=== PATIENT | female | born 1950 | race Caucasian/White ===

== ENCOUNTER → 2017-03-20 08:33 | Outpatient (CLI) | payer OTHER ==
[~2017-03-20 08:33] MED LIST: MOBIC7.5 M1 PO
== END | disposition home or self-care (01) ==
LOC: LAB 08:33
DX: Z80.3 Family history of malignant neoplasm of breast (principal); Z80.0 Family history of malignant neoplasm of digestive organs; C73 Malignant neoplasm of thyroid gland; D51.3 Other dietary vitamin B12 deficiency anemia; D50.8 Other iron deficiency anemias; I10 Essential (primary) hypertension; E03.8 Other specified hypothyroidism; E78.4 Other hyperlipidemia; E55.9 Vitamin D deficiency, unspecified; R97.0 Elevated carcinoembryonic antigen [CEA]; D51.8 Other vitamin B12 deficiency anemias; E78.2 Mixed hyperlipidemia; M79.1 Myalgia

== ENCOUNTER 2017-06-11 07:31 | Outpatient (CLI) | payer OTHER | END 2017-06-11 07:38 | disposition home or self-care (01) | LOC: LAB 07:31 | DX: Z80.3 Family history of malignant neoplasm of breast (principal); Z80.0 Family history of malignant neoplasm of digestive organs; C73 Malignant neoplasm of thyroid gland; D51.3 Other dietary vitamin B12 deficiency anemia; D50.8 Other iron deficiency anemias; I10 Essential (primary) hypertension; E03.8 Other specified hypothyroidism; E55.9 Vitamin D deficiency, unspecified; R97.0 Elevated carcinoembryonic antigen [CEA]; D51.8 Other vitamin B12 deficiency anemias; E78.4 Other hyperlipidemia ==

== ENCOUNTER 2017-10-10 09:45 | Outpatient (CLI) | payer OTHER ==
[~2017-10-10] VITALS: Ht 152.4 cm; Wt 52.2 kg
[~2017-10-10 09:45] MED LIST changes: -FLONASE16 GM NASAL; -ZYRTEC10 MG PO
[2017-10-10] MEDS ORDERED: ZYRTEC10 MG PO ×2 (10:39)
[2017-10-10] MEDS ORDERED: FLONASE16 GM NASAL ×2 (10:39)
== END 2017-10-10 10:00 | disposition home or self-care (01) ==
LOC: OFIC 805 09:45
DX: J31.0 Chronic rhinitis (principal); J34.2 Deviated nasal septum; C73 Malignant neoplasm of thyroid gland; R05 Cough

== ENCOUNTER → 2017-10-10 | Outpatient (CLI) | payer OTHER ==
[~2017-10-10] MED LIST changes: +FLONASE16 GM NASAL; +ZYRTEC10 MG PO
== END | disposition home or self-care (01) ==
LOC: TOM 11:51
DX: J31.0 Chronic rhinitis (principal)

== ENCOUNTER 2017-10-24 09:05 | Outpatient (CLI) | payer OTHER ==
[~2017-10-24] VITALS: Ht 152.4 cm; Wt 52.2 kg
[~2017-10-24 09:05] MED LIST changes: +FLONASE16 GM NASAL; +ZYRTEC10 MG PO
[2017-10-24] MEDS ORDERED: FLONASE16 GM NASAL (13:00)
[2017-10-24] MEDS ORDERED: ZYRTEC10 MG PO (13:00)
[2017-10-24] MEDS ORDERED: SINGULAIR10 MG PO (13:01)
== END 2017-10-24 09:20 | disposition home or self-care (01) ==
LOC: OFIC 805 09:05
DX: J31.0 Chronic rhinitis (principal); J34.2 Deviated nasal septum; C73 Malignant neoplasm of thyroid gland

== ENCOUNTER 2018-04-22 08:37 | Outpatient (CLI) | payer OTHER ==
[~2018-04-22 08:37] MED LIST changes: +SINGULAIR10 MG PO
== END 2018-04-22 08:45 | disposition home or self-care (01) ==
LOC: LAB 08:37
DX: Z80.3 Family history of malignant neoplasm of breast (principal); Z80.0 Family history of malignant neoplasm of digestive organs; C73 Malignant neoplasm of thyroid gland; D51.3 Other dietary vitamin B12 deficiency anemia; D50.8 Other iron deficiency anemias; I10 Essential (primary) hypertension; E03.8 Other specified hypothyroidism; E78.5 Hyperlipidemia, unspecified; E55.9 Vitamin D deficiency, unspecified; R97.0 Elevated carcinoembryonic antigen [CEA]; D51.8 Other vitamin B12 deficiency anemias; K90.89 Other intestinal malabsorption; R97.8 Other abnormal tumor markers

== ENCOUNTER 2018-04-24 08:38 | Outpatient (CLI) | payer OTHER ==
[~2018-04-24] VITALS: Ht 152.4 cm; Wt 52.2 kg
[2018-04-24] MEDS ORDERED: FLONASE16 GM NASAL (11:58)
[2018-04-24] MEDS ORDERED: ZYRTEC10 MG PO (11:58)
[2018-04-24] MEDS ORDERED: SINGULAIR10 MG PO (11:58)
== END 2018-04-24 09:00 | disposition home or self-care (01) ==
LOC: OFIC 805 08:38
DX: R05 Cough (principal); J34.2 Deviated nasal septum; J31.0 Chronic rhinitis

== ENCOUNTER 2018-04-27 07:49 | Outpatient (CLI) | payer OTHER | END 2018-04-27 16:12 | disposition home or self-care (01) | LOC: LAB 07:49 | DX: I11.0 Hypertensive heart disease with heart failure (principal); E78.2 Mixed hyperlipidemia; N39.0 Urinary tract infection, site not specified; C73 Malignant neoplasm of thyroid gland; E89.0 Postprocedural hypothyroidism; E11.9 Type 2 diabetes mellitus without complications ==

== ENCOUNTER 2018-07-29 06:28 | Outpatient (CLI) | payer OTHER | END 2018-07-29 06:34 | disposition home or self-care (01) | LOC: LAB 06:28 | DX: E03.8 Other specified hypothyroidism (principal); R97.0 Elevated carcinoembryonic antigen [CEA]; I10 Essential (primary) hypertension; D51.8 Other vitamin B12 deficiency anemias; D50.8 Other iron deficiency anemias; E55.9 Vitamin D deficiency, unspecified; E78.49 Other hyperlipidemia; D51.3 Other dietary vitamin B12 deficiency anemia; C73 Malignant neoplasm of thyroid gland; Z80.0 Family history of malignant neoplasm of digestive organs; Z80.3 Family history of malignant neoplasm of breast ==

== ENCOUNTER 2018-10-23 07:26 | Outpatient (CLI) | payer OTHER ==
[~2018-10-23] VITALS: Ht 152.4 cm; Wt 47.6 kg
[2018-10-23] MEDS ORDERED: ZYRTEC10 MG PO (08:46)
[2018-10-23] MEDS ORDERED: SINGULAIR10 MG PO (08:46)
== END 2018-10-23 07:55 | disposition home or self-care (01) ==
LOC: OFIC 805 07:26
DX: J31.0 Chronic rhinitis (principal); R05 Cough; J34.2 Deviated nasal septum

== ENCOUNTER → 2019-01-28 06:43 | Outpatient (CLI) | payer OTHER | END | disposition home or self-care (01) | LOC: LAB 06:43 | DX: C73 Malignant neoplasm of thyroid gland (principal); Z80.3 Family history of malignant neoplasm of breast; Z80.0 Family history of malignant neoplasm of digestive organs; D51.3 Other dietary vitamin B12 deficiency anemia; D50.8 Other iron deficiency anemias; I10 Essential (primary) hypertension; E03.8 Other specified hypothyroidism; E78.49 Other hyperlipidemia; E55.9 Vitamin D deficiency, unspecified; R97.0 Elevated carcinoembryonic antigen [CEA]; D51.8 Other vitamin B12 deficiency anemias ==

== ENCOUNTER → 2019-03-21 09:38 | Outpatient (CLI) | payer OTHER | END | disposition home or self-care (01) | LOC: LAB 09:38 | DX: C73 Malignant neoplasm of thyroid gland (principal); E78.2 Mixed hyperlipidemia; E11.9 Type 2 diabetes mellitus without complications; E03.8 Other specified hypothyroidism; I10 Essential (primary) hypertension ==

== ENCOUNTER → 2019-04-08 08:42 | Outpatient (CLI) | payer OTHER | END | disposition home or self-care (01) | LOC: LAB 08:42 | DX: C73 Malignant neoplasm of thyroid gland (principal); E89.0 Postprocedural hypothyroidism; I11.0 Hypertensive heart disease with heart failure; D53.8 Other specified nutritional anemias; E78.2 Mixed hyperlipidemia; N39.0 Urinary tract infection, site not specified; E11.9 Type 2 diabetes mellitus without complications; N36.0 Urethral fistula ==

== ENCOUNTER → 2019-04-14 | Outpatient (CLI) | payer OTHER | END | disposition home or self-care (01) | LOC: TOM 09:31 | DX: D31.62 Benign neoplasm of unspecified site of left orbit (principal) | CPT/HCPCS: 70460; Q9965 ==

== ENCOUNTER 2019-05-13 08:15 | Outpatient (CLI) | payer OTHER | END 2019-05-13 10:44 | disposition home or self-care (01) | LOC: LAB 08:15 | DX: R63.4 Abnormal weight loss (principal); K86.2 Cyst of pancreas; K90.0 Celiac disease; Z80.3 Family history of malignant neoplasm of breast; C73 Malignant neoplasm of thyroid gland; D51.3 Other dietary vitamin B12 deficiency anemia; D50.8 Other iron deficiency anemias; I10 Essential (primary) hypertension; E03.8 Other specified hypothyroidism; E78.49 Other hyperlipidemia; E55.9 Vitamin D deficiency, unspecified; R97.0 Elevated carcinoembryonic antigen [CEA]; D51.8 Other vitamin B12 deficiency anemias; R97.8 Other abnormal tumor markers ==

== ENCOUNTER 2019-05-16 09:38 | Outpatient (CLI) | payer OTHER | END 2019-05-16 09:52 | disposition home or self-care (01) | LOC: LAB 09:38 | DX: D51.3 Other dietary vitamin B12 deficiency anemia (principal); I10 Essential (primary) hypertension; E03.8 Other specified hypothyroidism; E78.49 Other hyperlipidemia; R97.0 Elevated carcinoembryonic antigen [CEA]; D50.8 Other iron deficiency anemias; D51.8 Other vitamin B12 deficiency anemias; R97.8 Other abnormal tumor markers; Z80.3 Family history of malignant neoplasm of breast; Z80.0 Family history of malignant neoplasm of digestive organs; R63.4 Abnormal weight loss; K86.2 Cyst of pancreas; K90.0 Celiac disease ==

== ENCOUNTER 2019-09-05 09:23 | Outpatient (CLI) | payer OTHER | END 2019-09-05 09:30 | disposition home or self-care (01) | LOC: LAB 09:23 | PROVIDERS: ATTEND Internal Medicine Hematology & Oncology | DX: D50.8 Other iron deficiency anemias (principal); I10 Essential (primary) hypertension; D51.8 Other vitamin B12 deficiency anemias; E03.8 Other specified hypothyroidism; C73 Malignant neoplasm of thyroid gland; R97.0 Elevated carcinoembryonic antigen [CEA]; R97.8 Other abnormal tumor markers; Z80.3 Family history of malignant neoplasm of breast; Z80.0 Family history of malignant neoplasm of digestive organs; D51.3 Other dietary vitamin B12 deficiency anemia; E78.49 Other hyperlipidemia; E55.9 Vitamin D deficiency, unspecified ==

== ENCOUNTER → 2019-10-24 08:43 | Outpatient (CLI) | payer OTHER | END | disposition home or self-care (01) | LOC: LAB 08:43 | PROVIDERS: ATTEND Internal Medicine Endocrinology, Diabetes & Metabolism | DX: C73 Malignant neoplasm of thyroid gland (principal); E89.0 Postprocedural hypothyroidism; E78.2 Mixed hyperlipidemia; I20.8 Other forms of angina pectoris; D53.8 Other specified nutritional anemias; N39.0 Urinary tract infection, site not specified; E55.9 Vitamin D deficiency, unspecified; E58 Dietary calcium deficiency ==

== ENCOUNTER 2020-02-23 08:33 | Outpatient (CLI) | payer OTHER | END 2020-02-23 08:40 | disposition home or self-care (01) | LOC: LAB 08:33 | PROVIDERS: ATTEND Internal Medicine Sports Medicine | DX: I10 Essential (primary) hypertension (principal); C73 Malignant neoplasm of thyroid gland; R97.0 Elevated carcinoembryonic antigen [CEA]; D64.89 Other specified anemias; E11.9 Type 2 diabetes mellitus without complications; E78.2 Mixed hyperlipidemia; E03.8 Other specified hypothyroidism ==

== ENCOUNTER 2020-02-24 11:11 | Outpatient (CLI) | payer OTHER | END 2020-02-24 11:18 | disposition home or self-care (01) | LOC: SONOGRAMA 11:11 | PROVIDERS: ATTEND Internal Medicine Sports Medicine | DX: E04.2 Nontoxic multinodular goiter (principal); C73 Malignant neoplasm of thyroid gland ==

== ENCOUNTER 2020-04-23 08:32 | Outpatient (CLI) | payer OTHER | END 2020-04-23 08:36 | disposition home or self-care (01) | LOC: LAB 08:32 | PROVIDERS: ATTEND Internal Medicine | DX: I10 Essential (primary) hypertension (principal); R80.0 Isolated proteinuria; Z60.2 Problems related to living alone; I34.1 Nonrheumatic mitral (valve) prolapse; I37.1 Nonrheumatic pulmonary valve insufficiency; I36.1 Nonrheumatic tricuspid (valve) insufficiency; I70.293 Other atherosclerosis of native arteries of extremities, bilateral legs; E78.2 Mixed hyperlipidemia; Q40.1 Congenital hiatus hernia; K64.8 Other hemorrhoids; K57.30 Diverticulosis of large intestine without perforation or abscess without bleeding; K86.3 Pseudocyst of pancreas; Q44.6 Cystic disease of liver; K76.89 Other specified diseases of liver; K21.9 Gastro-esophageal reflux disease without esophagitis; N87.1 Moderate cervical dysplasia; N39.0 Urinary tract infection, site not specified; R80.8 Other proteinuria; S43.80XA Sprain of other specified parts of unspecified shoulder girdle, initial encounter; M85.89 Other specified disorders of bone density and structure, multiple sites; M25.552 Pain in left hip; M54.41 Lumbago with sciatica, right side; M51.37 Other intervertebral disc degeneration, lumbosacral region; M99.03 Segmental and somatic dysfunction of lumbar region; M62.830 Muscle spasm of back; D49.3 Neoplasm of unspecified behavior of breast; Z68.1 Body mass index [BMI] 19.9 or less, adult; Z87.19 Personal history of other diseases of the digestive system; Z86.010 Personal history of colon polyps; Z85.850 Personal history of malignant neoplasm of thyroid ==

== ENCOUNTER → 2020-06-21 07:07 | Outpatient (CLI) | payer OTHER | END | disposition home or self-care (01) | LOC: LAB 07:07 | PROVIDERS: ATTEND Ophthalmology | DX: H02.413 Mechanical ptosis of bilateral eyelids (principal) ==

== ENCOUNTER 2020-09-08 07:23 | Outpatient (CLI) | payer OTHER | END 2020-09-08 13:41 | disposition home or self-care (01) | LOC: LAB 07:23 | PROVIDERS: ATTEND Internal Medicine Hematology & Oncology | DX: D50.8 Other iron deficiency anemias (principal); I10 Essential (primary) hypertension; R74.02 Elevation of levels of lactic acid dehydrogenase [LDH]; K76.89 Other specified diseases of liver; E03.8 Other specified hypothyroidism; C73 Malignant neoplasm of thyroid gland; R97.0 Elevated carcinoembryonic antigen [CEA]; R97.8 Other abnormal tumor markers; Z80.3 Family history of malignant neoplasm of breast; Z80.0 Family history of malignant neoplasm of digestive organs; D51.3 Other dietary vitamin B12 deficiency anemia; E03.9 Hypothyroidism, unspecified; E78.5 Hyperlipidemia, unspecified; E55.9 Vitamin D deficiency, unspecified ==

== ENCOUNTER → 2020-10-15 07:34 | Outpatient (CLI) | payer OTHER | END | disposition home or self-care (01) | LOC: LAB 07:34 | PROVIDERS: ATTEND Internal Medicine | DX: I10 Essential (primary) hypertension (principal); I34.1 Nonrheumatic mitral (valve) prolapse; I37.1 Nonrheumatic pulmonary valve insufficiency; Z60.2 Problems related to living alone; I36.1 Nonrheumatic tricuspid (valve) insufficiency; I70.293 Other atherosclerosis of native arteries of extremities, bilateral legs; E78.2 Mixed hyperlipidemia; Q40.1 Congenital hiatus hernia; K64.8 Other hemorrhoids; K57.30 Diverticulosis of large intestine without perforation or abscess without bleeding; K86.3 Pseudocyst of pancreas; Q44.6 Cystic disease of liver; K76.89 Other specified diseases of liver; K21.9 Gastro-esophageal reflux disease without esophagitis; N87.9 Dysplasia of cervix uteri, unspecified; N39.0 Urinary tract infection, site not specified; R80.8 Other proteinuria; S43.80XA Sprain of other specified parts of unspecified shoulder girdle, initial encounter; M85.89 Other specified disorders of bone density and structure, multiple sites; M25.552 Pain in left hip; M54.42 Lumbago with sciatica, left side; M54.41 Lumbago with sciatica, right side; M51.37 Other intervertebral disc degeneration, lumbosacral region; M99.03 Segmental and somatic dysfunction of lumbar region; M48.062 Spinal stenosis, lumbar region with neurogenic claudication; N60.29 Fibroadenosis of unspecified breast; D49.3 Neoplasm of unspecified behavior of breast; E85.4 Organ-limited amyloidosis; Z68.1 Body mass index [BMI] 19.9 or less, adult; Z87.19 Personal history of other diseases of the digestive system; Z86.010 Personal history of colon polyps; Z85.850 Personal history of malignant neoplasm of thyroid; E03.8 Other specified hypothyroidism; R73.01 Impaired fasting glucose ==

== ENCOUNTER 2020-11-27 08:27 | Outpatient (CLI) | payer OTHER | END 2020-11-27 08:34 | disposition home or self-care (01) | LOC: LAB 08:27 | PROVIDERS: ATTEND Internal Medicine Sports Medicine | DX: D64.89 Other specified anemias (principal); E11.9 Type 2 diabetes mellitus without complications; E78.2 Mixed hyperlipidemia; I10 Essential (primary) hypertension; E03.8 Other specified hypothyroidism; C73 Malignant neoplasm of thyroid gland; R97.8 Other abnormal tumor markers ==

== ENCOUNTER → 2021-01-05 07:00 | Outpatient (CLI) | payer OTHER | END | disposition home or self-care (01) | LOC: LAB 07:00 | PROVIDERS: ATTEND Psychiatry & Neurology Neurology | DX: R41.3 Other amnesia (principal); R40.4 Transient alteration of awareness; D50.8 Other iron deficiency anemias; I10 Essential (primary) hypertension; E03.8 Other specified hypothyroidism; C73 Malignant neoplasm of thyroid gland; R97.0 Elevated carcinoembryonic antigen [CEA]; R97.8 Other abnormal tumor markers; Z80.3 Family history of malignant neoplasm of breast; D51.3 Other dietary vitamin B12 deficiency anemia; E78.49 Other hyperlipidemia; E55.9 Vitamin D deficiency, unspecified ==

== ENCOUNTER 2021-02-16 07:01 | Outpatient (CLI) | payer OTHER | END 2021-02-16 07:02 | disposition home or self-care (01) | LOC: LAB 07:01 | PROVIDERS: ATTEND Internal Medicine Sports Medicine | DX: R10.13 Epigastric pain (principal); K86.2 Cyst of pancreas ==

== ENCOUNTER 2021-03-18 07:06 | Outpatient (CLI) | payer OTHER | END 2021-03-18 07:18 | disposition home or self-care (01) | LOC: LAB 07:06 | DX: I11.0 Hypertensive heart disease with heart failure (principal); D53.8 Other specified nutritional anemias; E04.8 Other specified nontoxic goiter; E11.9 Type 2 diabetes mellitus without complications; N39.0 Urinary tract infection, site not specified; Z11.52 Encounter for screening for COVID-19 ==

== ENCOUNTER 2021-03-29 06:38 | Outpatient (CLI) | payer OTHER | END 2021-03-29 06:39 | disposition home or self-care (01) | LOC: LAB 06:38 | PROVIDERS: ATTEND Internal Medicine Hematology & Oncology | DX: D50.8 Other iron deficiency anemias (principal); I10 Essential (primary) hypertension; R74.02 Elevation of levels of lactic acid dehydrogenase [LDH]; K76.89 Other specified diseases of liver; C50.919 Malignant neoplasm of unspecified site of unspecified female breast; R97.8 Other abnormal tumor markers; C25.9 Malignant neoplasm of pancreas, unspecified; C56.9 Malignant neoplasm of unspecified ovary; R97.0 Elevated carcinoembryonic antigen [CEA]; R97.1 Elevated cancer antigen 125 [CA 125]; Z80.3 Family history of malignant neoplasm of breast; Z80.0 Family history of malignant neoplasm of digestive organs; C73 Malignant neoplasm of thyroid gland; D51.3 Other dietary vitamin B12 deficiency anemia; E03.8 Other specified hypothyroidism; E78.49 Other hyperlipidemia; E55.9 Vitamin D deficiency, unspecified ==

== ENCOUNTER 2021-04-18 07:37 | Outpatient (CLI) | payer OTHER | END 2021-04-18 07:45 | disposition home or self-care (01) | LOC: LAB 07:37 | PROVIDERS: ATTEND Ophthalmology | DX: D68.8 Other specified coagulation defects (principal); I10 Essential (primary) hypertension; I34.1 Nonrheumatic mitral (valve) prolapse; I37.1 Nonrheumatic pulmonary valve insufficiency; I36.1 Nonrheumatic tricuspid (valve) insufficiency; I70.293 Other atherosclerosis of native arteries of extremities, bilateral legs; E78.2 Mixed hyperlipidemia; Q40.1 Congenital hiatus hernia; K64.8 Other hemorrhoids; K57.30 Diverticulosis of large intestine without perforation or abscess without bleeding; K86.3 Pseudocyst of pancreas; Q44.6 Cystic disease of liver; K76.89 Other specified diseases of liver; K21.9 Gastro-esophageal reflux disease without esophagitis; N87.9 Dysplasia of cervix uteri, unspecified; N39.0 Urinary tract infection, site not specified; R80.8 Other proteinuria; S43.80XA Sprain of other specified parts of unspecified shoulder girdle, initial encounter; M85.88 Other specified disorders of bone density and structure, other site; M25.552 Pain in left hip; M51.37 Other intervertebral disc degeneration, lumbosacral region; M54.59 Other low back pain; M99.03 Segmental and somatic dysfunction of lumbar region; N60.29 Fibroadenosis of unspecified breast; D49.3 Neoplasm of unspecified behavior of breast; E85.4 Organ-limited amyloidosis; Z68.1 Body mass index [BMI] 19.9 or less, adult; Z87.19 Personal history of other diseases of the digestive system; Z86.010 Personal history of colon polyps; Z85.850 Personal history of malignant neoplasm of thyroid; E03.8 Other specified hypothyroidism; R73.01 Impaired fasting glucose; E53.8 Deficiency of other specified B group vitamins; K65.8 Other peritonitis ==

== ENCOUNTER 2021-07-19 06:43 | Outpatient (CLI) | payer OTHER | END 2021-07-19 06:51 | disposition home or self-care (01) | LOC: LAB 06:43 | PROVIDERS: ATTEND Internal Medicine Endocrinology, Diabetes & Metabolism | DX: E04.9 Nontoxic goiter, unspecified (principal); I11.0 Hypertensive heart disease with heart failure; D53.9 Nutritional anemia, unspecified; N39.0 Urinary tract infection, site not specified; E78.2 Mixed hyperlipidemia ==

== ENCOUNTER 2021-07-28 07:16 | Outpatient (CLI) | payer OTHER | END 2021-07-28 07:27 | disposition home or self-care (01) | LOC: LAB 07:16 | PROVIDERS: ATTEND Internal Medicine Hematology & Oncology | DX: D50.8 Other iron deficiency anemias (principal); R79.9 Abnormal finding of blood chemistry, unspecified; I10 Essential (primary) hypertension; R74.02 Elevation of levels of lactic acid dehydrogenase [LDH]; K76.89 Other specified diseases of liver; E55.9 Vitamin D deficiency, unspecified; E03.9 Hypothyroidism, unspecified; C73 Malignant neoplasm of thyroid gland; Z80.3 Family history of malignant neoplasm of breast; Z80.0 Family history of malignant neoplasm of digestive organs; D51.3 Other dietary vitamin B12 deficiency anemia; E78.5 Hyperlipidemia, unspecified; R97.0 Elevated carcinoembryonic antigen [CEA] ==

== ENCOUNTER 2021-08-10 06:52 | Outpatient (CLI) | payer OTHER | END 2021-08-10 07:00 | disposition home or self-care (01) | LOC: LAB 06:52 | PROVIDERS: ATTEND Internal Medicine Endocrinology, Diabetes & Metabolism | DX: I11.0 Hypertensive heart disease with heart failure (principal); E27.1 Primary adrenocortical insufficiency; I49.8 Other specified cardiac arrhythmias; I25.10 Atherosclerotic heart disease of native coronary artery without angina pectoris ==

== ENCOUNTER 2021-10-11 07:04 | Outpatient (CLI) | payer OTHER | END 2021-10-11 07:09 | disposition home or self-care (01) | LOC: LAB 07:04 | PROVIDERS: ATTEND Internal Medicine | DX: I10 Essential (primary) hypertension (principal); I34.1 Nonrheumatic mitral (valve) prolapse; I37.1 Nonrheumatic pulmonary valve insufficiency; I36.1 Nonrheumatic tricuspid (valve) insufficiency; I70.293 Other atherosclerosis of native arteries of extremities, bilateral legs; E78.2 Mixed hyperlipidemia; Q40.1 Congenital hiatus hernia; K64.8 Other hemorrhoids; K57.30 Diverticulosis of large intestine without perforation or abscess without bleeding; K86.3 Pseudocyst of pancreas; Q44.6 Cystic disease of liver; K76.89 Other specified diseases of liver; K21.9 Gastro-esophageal reflux disease without esophagitis; N87.9 Dysplasia of cervix uteri, unspecified; N39.0 Urinary tract infection, site not specified; R80.8 Other proteinuria; N94.89 Other specified conditions associated with female genital organs and menstrual cycle; M85.89 Other specified disorders of bone density and structure, multiple sites; M25.552 Pain in left hip; M54.42 Lumbago with sciatica, left side; M51.37 Other intervertebral disc degeneration, lumbosacral region; M99.03 Segmental and somatic dysfunction of lumbar region; M62.830 Muscle spasm of back; N60.29 Fibroadenosis of unspecified breast; D49.3 Neoplasm of unspecified behavior of breast; Z68.21 Body mass index [BMI] 21.0-21.9, adult; Z87.19 Personal history of other diseases of the digestive system; Z86.010 Personal history of colon polyps; Z85.850 Personal history of malignant neoplasm of thyroid; R73.01 Impaired fasting glucose; E55.9 Vitamin D deficiency, unspecified ==

== ENCOUNTER 2022-04-03 07:34 | Outpatient (CLI) | payer OTHER | END 2022-04-03 13:13 | disposition home or self-care (01) | LOC: LAB 07:34 | PROVIDERS: ATTEND Internal Medicine Endocrinology, Diabetes & Metabolism | DX: I10 Essential (primary) hypertension (principal); D53.9 Nutritional anemia, unspecified; N39.0 Urinary tract infection, site not specified; E78.2 Mixed hyperlipidemia; E04.9 Nontoxic goiter, unspecified; E11.9 Type 2 diabetes mellitus without complications; M06.1 Adult-onset Still's disease; E61.3 Manganese deficiency; E55.9 Vitamin D deficiency, unspecified ==

== ENCOUNTER 2022-08-07 07:37 | Outpatient (CLI) | payer OTHER | END 2022-08-07 07:42 | disposition home or self-care (01) | LOC: LAB 07:37 | PROVIDERS: ATTEND Internal Medicine Hematology & Oncology | DX: D50.8 Other iron deficiency anemias (principal); R79.9 Abnormal finding of blood chemistry, unspecified; I10 Essential (primary) hypertension; R74.02 Elevation of levels of lactic acid dehydrogenase [LDH]; K76.89 Other specified diseases of liver; E55.9 Vitamin D deficiency, unspecified; E03.8 Other specified hypothyroidism; C73 Malignant neoplasm of thyroid gland; C56.9 Malignant neoplasm of unspecified ovary; R97.8 Other abnormal tumor markers; R97.1 Elevated cancer antigen 125 [CA 125]; R97.0 Elevated carcinoembryonic antigen [CEA]; Z80.3 Family history of malignant neoplasm of breast; Z80.0 Family history of malignant neoplasm of digestive organs; D51.3 Other dietary vitamin B12 deficiency anemia; E03.9 Hypothyroidism, unspecified; E78.5 Hyperlipidemia, unspecified ==

== ENCOUNTER 2022-09-28 07:04 | Outpatient (CLI) | payer OTHER | END 2022-09-28 07:07 | disposition home or self-care (01) | LOC: LAB 07:04 | PROVIDERS: ATTEND Internal Medicine Endocrinology, Diabetes & Metabolism | DX: I11.0 Hypertensive heart disease with heart failure (principal); D53.9 Nutritional anemia, unspecified; N39.0 Urinary tract infection, site not specified; E78.2 Mixed hyperlipidemia; E04.9 Nontoxic goiter, unspecified; R73.03 Prediabetes ==

== ENCOUNTER → 2023-02-01 06:36 | Outpatient (CLI) | payer OTHER ==
[2023-02-01 07:56] LABS: HEMOGLOBIN 12.3 g/dL (12.0-15.00); MEAN CELL VOLUME 94.3 fL (80.00-100.00); MEAN CORPUSCULAR HEMOGLOBIN 31.3 pg (27.00-32.0); MEAN CORPUSCULAR HGB CONC 33.2 g/dl (32.0-36.0); PLATELET COUNT 361 K/uL (150-450); RED BLOOD COUNT 3.92 M/uL (4.00-6.00); RED CELL DISTRIBUTION WIDTH 13.9 % (11.5-14.5)
[2023-02-01 08:27] LABS: URINE APPEARANCE Clear; URINE BILIRRUBIN Negative (NEGATIVE); URINE BLOOD Negative; URINE COLOR Yellow; URINE GLUCOSE Negative (NEGATIVE); URINE LEUKOCYTE Negative; URINE NITRATE Negative; URINE PROTEIN Negative (NEGATIVE)
[2023-02-01 08:31] LABS: URINE BACTERIA 20.1 uL (0.0-1933); URINE EPITHELIAL CELLS 1.8 uL (0.0-38.8); URINE RBC 9.9 uL (0.0-20.8); URINE WBC 4.4 uL (0.0-23.2)
[2023-02-01 08:41] LABS: % SATURACION 34.3 % (15-50); ALBUMIN 3.8 gm/dL (3.4-5.0); BILIRUBIN TOTAL 0.59 mg/dL (0.3-1.2); CHOL HDL RATIO 2.1 (0-5.0); CREATININE SERUM 0.66 mg/dL (0.55-1.02); FERRITIN 189.3 NG/ML (8-252); GFR 87.79; GLOBULINA 3.1 G/DL (2.4-3.5); POTASSIUM 4.31 mEq/L (3.5-5.1); T4 FREE 1.1 NG/ML (0.76-1.46); TOTAL PROTEIN 6.9 gm/dL (6.4-8.2); TSH 4.33 uIU/mL (0.358-3.74)
[2023-02-01 10:14] LABS: MANUAL PLATELET COUNT 426; PLATELET ESTIMATE NORMAL (NORMAL)
[2023-02-01 10:54] LABS: VITAMIN D3 25 HYDROXY 46.93 ng/ml (30-120)
== END | disposition home or self-care (01) ==
LOC: LAB 06:36
PROVIDERS: ATTEND Internal Medicine Hematology & Oncology
DX: D50.8 Other iron deficiency anemias (principal); R79.9 Abnormal finding of blood chemistry, unspecified; R74.02 Elevation of levels of lactic acid dehydrogenase [LDH]; K76.89 Other specified diseases of liver; E55.9 Vitamin D deficiency, unspecified; C50.919 Malignant neoplasm of unspecified site of unspecified female breast; R97.8 Other abnormal tumor markers; C56.9 Malignant neoplasm of unspecified ovary; R97.1 Elevated cancer antigen 125 [CA 125]; R97.0 Elevated carcinoembryonic antigen [CEA]; Z80.3 Family history of malignant neoplasm of breast; Z80.0 Family history of malignant neoplasm of digestive organs; C73 Malignant neoplasm of thyroid gland; D51.3 Other dietary vitamin B12 deficiency anemia; E03.9 Hypothyroidism, unspecified; Z88.8 Allergy status to other drugs, medicaments and biological substances; D83.9 Common variable immunodeficiency, unspecified; N39.0 Urinary tract infection, site not specified; I11.9 Hypertensive heart disease without heart failure; N36.2 Urethral caruncle; E78.00 Pure hypercholesterolemia, unspecified

== ENCOUNTER 2023-04-19 06:22 | Outpatient (CLI) | payer OTHER ==
[2023-04-19 06:51] LABS: HEMATOCRIT 37.3 % (36.0-45.00); HEMOGLOBIN 12.6 g/dL (12.0-15.00); MEAN CELL VOLUME 93.3 fL (80.00-100.00); MEAN CORPUSCULAR HEMOGLOBIN 31.5 pg (27.00-32.0); MEAN CORPUSCULAR HGB CONC 33.8 g/dl (32.0-36.0); PLATELET COUNT 256 K/uL (150-450); RED BLOOD COUNT 3.99 M/uL (4.00-6.00); RED CELL DISTRIBUTION WIDTH 13.7 % (11.5-14.5)
[2023-04-19 07:08] LABS: URINE APPEARANCE Clear; URINE BILIRRUBIN Negative (NEGATIVE); URINE BLOOD Negative; URINE COLOR Yellow; URINE GLUCOSE Negative (NEGATIVE); URINE LEUKOCYTE Trace; URINE NITRATE Negative; URINE PROTEIN Negative (NEGATIVE)
[2023-04-19 07:09] LABS: URINE RBC 9.9 uL (0.0-20.8); URINE WBC 6.7 uL (0.0-23.2)
[2023-04-19 07:40] LABS: ALBUMIN 3.8 gm/dL (3.4-5.0); BILIRUBIN TOTAL 0.53 mg/dL (0.3-1.2); CHOL HDL RATIO 1.8 (0-5.0); CREATININE SERUM 0.64 mg/dL (0.55-1.02); GFR 90.71; POTASSIUM 4.42 mEq/L (3.5-5.1); TOTAL PROTEIN 6.8 gm/dL (6.4-8.2)
[2023-04-19 07:42] LABS: TSH 0.34 uIU/mL (0.358-3.74)
== END 2023-04-19 06:23 | disposition home or self-care (01) ==
LOC: LAB 06:22
PROVIDERS: ATTEND Internal Medicine
DX: I10 Essential (primary) hypertension (principal); Z60.2 Problems related to living alone; I34.1 Nonrheumatic mitral (valve) prolapse; I37.1 Nonrheumatic pulmonary valve insufficiency; I36.1 Nonrheumatic tricuspid (valve) insufficiency; I70.293 Other atherosclerosis of native arteries of extremities, bilateral legs; E78.2 Mixed hyperlipidemia; Q40.1 Congenital hiatus hernia; K64.8 Other hemorrhoids; K57.30 Diverticulosis of large intestine without perforation or abscess without bleeding; K68.3 Retroperitoneal hematoma; Q44.6 Cystic disease of liver; K76.89 Other specified diseases of liver; K21.9 Gastro-esophageal reflux disease without esophagitis; K57.32 Diverticulitis of large intestine without perforation or abscess without bleeding; N87.9 Dysplasia of cervix uteri, unspecified; N39.0 Urinary tract infection, site not specified; R80.8 Other proteinuria; N94.89 Other specified conditions associated with female genital organs and menstrual cycle; D25.9 Leiomyoma of uterus, unspecified; Z86.16 Personal history of COVID-19; S43.80XA Sprain of other specified parts of unspecified shoulder girdle, initial encounter; M85.89 Other specified disorders of bone density and structure, multiple sites; M54.50 Low back pain, unspecified; M99.03 Segmental and somatic dysfunction of lumbar region; M48.06 Spinal stenosis, lumbar region; N60.29 Fibroadenosis of unspecified breast; D49.3 Neoplasm of unspecified behavior of breast; E85.4 Organ-limited amyloidosis; Z68.22 Body mass index [BMI] 22.0-22.9, adult; E55.9 Vitamin D deficiency, unspecified; E53.8 Deficiency of other specified B group vitamins; Z12.11 Encounter for screening for malignant neoplasm of colon

== ENCOUNTER 2023-05-21 07:47 | Outpatient (CLI) | payer OTHER ==
[2023-05-21 08:21] LABS: HEMATOCRIT 38.1 % (36.0-45.00); HEMOGLOBIN 12.9 g/dL (12.0-15.00); MEAN CELL VOLUME 92.1 fL (80.00-100.00); MEAN CORPUSCULAR HEMOGLOBIN 31.1 pg (27.00-32.0); MEAN CORPUSCULAR HGB CONC 33.8 g/dl (32.0-36.0); PLATELET COUNT 285 K/uL (150-450); RED BLOOD COUNT 4.14 M/uL (4.00-6.00); RED CELL DISTRIBUTION WIDTH 14.3 % (11.5-14.5)
[2023-05-21 09:24] LABS: ALBUMIN 3.9 gm/dL (3.4-5.0); BILIRUBIN TOTAL 0.65 mg/dL (0.3-1.2); CREATININE SERUM 0.55 mg/dL (0.55-1.02); GFR 108.05; GLOBULINA 3.1 G/DL (2.4-3.5); POTASSIUM 4.3 mEq/L (3.5-5.1); T4 FREE 1.33 NG/ML (0.76-1.46)
[2023-05-21 09:30] LABS: TSH 0.155 uIU/mL (0.358-3.74)
[2023-05-21 13:36] LABS: FOLIC ACID > 20.00 ng/ml (4.78-20)
[2023-05-21 14:33] LABS: MANUAL PLATELET COUNT 452
[2023-05-21 14:34] LABS: PLATELET ESTIMATE NORMAL (NORMAL)
[2023-05-22 10:08] LABS: CA 19-9 30 U/mL (0-35)
[2023-05-23 16:07] LABS: CALCITONIN < 2.0 pg/mL (0.0-5.0)
== END 2023-05-21 07:56 | disposition home or self-care (01) ==
LOC: LAB 07:47
PROVIDERS: ATTEND Internal Medicine Hematology & Oncology
DX: D50.8 Other iron deficiency anemias (principal); I10 Essential (primary) hypertension; E74.02 Pompe disease; K76.89 Other specified diseases of liver; D51.8 Other vitamin B12 deficiency anemias; E03.8 Other specified hypothyroidism; C25.9 Malignant neoplasm of pancreas, unspecified; Z80.3 Family history of malignant neoplasm of breast; C73 Malignant neoplasm of thyroid gland; D51.3 Other dietary vitamin B12 deficiency anemia; E03.9 Hypothyroidism, unspecified; E78.5 Hyperlipidemia, unspecified; E55.9 Vitamin D deficiency, unspecified; R97.0 Elevated carcinoembryonic antigen [CEA]

== ENCOUNTER 2023-06-29 06:52 | Outpatient (CLI) | payer OTHER ==
[2023-06-29 08:34] LABS: PH,URINE 5.5 (5.0-8.0); URINE APPEARANCE Clear; URINE BILIRRUBIN Negative (NEGATIVE); URINE BLOOD Negative; URINE COLOR Yellow; URINE GLUCOSE Negative (NEGATIVE); URINE LEUKOCYTE Negative; URINE NITRATE Negative; URINE PROTEIN Negative (NEGATIVE); URINE UROBILINOGEN 0.2 E.U./dl
[2023-06-29 08:38] LABS: URINE BACTERIA 7.5 uL (0.0-1933); URINE EPITHELIAL CELLS 2.1 uL (0.0-38.8); URINE RBC 12.2 uL (0.0-20.8); URINE WBC 7.8 uL (0.0-23.2)
[2023-06-29 08:51] LABS: HEMATOCRIT 36.6 % (36.0-45.00); HEMOGLOBIN 12.3 g/dL (12.0-15.00); MEAN CELL VOLUME 91.4 fL (80.00-100.00); MEAN CORPUSCULAR HEMOGLOBIN 30.7 pg (27.00-32.0); MEAN CORPUSCULAR HGB CONC 33.6 g/dl (32.0-36.0); PLATELET COUNT 267 K/uL (150-450); RED BLOOD COUNT 4.01 M/uL (4.00-6.00); RED CELL DISTRIBUTION WIDTH 13.8 % (11.5-14.5)
[2023-06-29 09:22] LABS: ALBUMIN 3.8 gm/dL (3.4-5.0); BILIRUBIN TOTAL 0.51 mg/dL (0.3-1.2); CHOL HDL RATIO 1.9 (0-5.0); CREATININE SERUM 0.61 mg/dL (0.55-1.02); GFR 95.88; GLOBULINA 2.8 G/DL (2.4-3.5); POTASSIUM 4.73 mEq/L (3.5-5.1); T4 FREE 1.4 NG/ML (0.76-1.46); TOTAL PROTEIN 6.6 gm/dL (6.4-8.2); TSH 0.13 uIU/mL (0.358-3.74)
== END 2023-06-29 06:53 | disposition home or self-care (01) ==
LOC: LAB 06:52
PROVIDERS: ATTEND Internal Medicine Endocrinology, Diabetes & Metabolism
DX: I11.0 Hypertensive heart disease with heart failure (principal); D53.9 Nutritional anemia, unspecified; N39.0 Urinary tract infection, site not specified; E78.2 Mixed hyperlipidemia; E04.9 Nontoxic goiter, unspecified; K76.2 Central hemorrhagic necrosis of liver; C73 Malignant neoplasm of thyroid gland

== ENCOUNTER 2023-09-18 07:57 | Outpatient (CLI) | payer OTHER ==
[2023-09-18 08:52] LABS: URINE APPEARANCE Clear; URINE BILIRRUBIN Negative (NEGATIVE); URINE BLOOD Negative; URINE COLOR Yellow; URINE GLUCOSE Negative (NEGATIVE); URINE LEUKOCYTE Negative; URINE NITRATE Negative; URINE PROTEIN Negative (NEGATIVE); URINE UROBILINOGEN 0.2 E.U./dl
[2023-09-18 08:56] LABS: HEMATOCRIT 35.6 % (36.0-45.00); HEMOGLOBIN 12.1 g/dL (12.0-15.00); MEAN CELL VOLUME 91.9 fL (80.00-100.00); MEAN CORPUSCULAR HEMOGLOBIN 31.2 pg (27.00-32.0); MEAN CORPUSCULAR HGB CONC 33.9 g/dl (32.0-36.0); PLATELET COUNT 268 K/uL (150-450); RED BLOOD COUNT 3.88 M/uL (4.00-6.00); RED CELL DISTRIBUTION WIDTH 14.2 % (11.5-14.5)
[2023-09-18 08:57] LABS: URINE BACTERIA 13.8 uL (0.0-1933); URINE EPITHELIAL CELLS 2.1 uL (0.0-38.8); URINE WBC 5.4 uL (0.0-23.2)
[2023-09-18 09:33] LABS: ALBUMIN 3.7 gm/dL (3.4-5.0); BILIRUBIN TOTAL 0.51 mg/dL (0.3-1.2); CHOL HDL RATIO 1.9 (0-5.0); CREATININE SERUM 0.52 mg/dL (0.55-1.02); GFR 115.27; GLOBULINA 3.1 G/DL (2.4-3.5); POTASSIUM 3.89 mEq/L (3.5-5.1); T4 FREE 1.11 NG/ML (0.76-1.46); TOTAL PROTEIN 6.8 gm/dL (6.4-8.2); TSH 1.48 uIU/mL (0.358-3.74)
[2023-09-18 10:30] LABS: VITAMIN D3 25 HYDROXY 60.11 ng/ml (30-120)
== END 2023-09-18 07:58 | disposition home or self-care (01) ==
LOC: LAB 07:57
PROVIDERS: ATTEND Internal Medicine
DX: N39.0 Urinary tract infection, site not specified (principal); E78.2 Mixed hyperlipidemia; E03.8 Other specified hypothyroidism; R73.01 Impaired fasting glucose; E55.9 Vitamin D deficiency, unspecified; E53.8 Deficiency of other specified B group vitamins; D50.8 Other iron deficiency anemias; Z12.11 Encounter for screening for malignant neoplasm of colon; M21.951 Unspecified acquired deformity of right thigh; M48.061 Spinal stenosis, lumbar region without neurogenic claudication; G60.3 Idiopathic progressive neuropathy; D49.3 Neoplasm of unspecified behavior of breast; E85.4 Organ-limited amyloidosis; Z68.21 Body mass index [BMI] 21.0-21.9, adult; K86.3 Pseudocyst of pancreas; Q44.6 Cystic disease of liver; K76.89 Other specified diseases of liver; K21.9 Gastro-esophageal reflux disease without esophagitis; N87.9 Dysplasia of cervix uteri, unspecified; R80.8 Other proteinuria; N94.89 Other specified conditions associated with female genital organs and menstrual cycle; D25.9 Leiomyoma of uterus, unspecified; Z86.16 Personal history of COVID-19; S43.80XA Sprain of other specified parts of unspecified shoulder girdle, initial encounter; M85.89 Other specified disorders of bone density and structure, multiple sites; M99.03 Segmental and somatic dysfunction of lumbar region; M51.27 Other intervertebral disc displacement, lumbosacral region; M54.16 Radiculopathy, lumbar region; M21.952 Unspecified acquired deformity of left thigh; Z60.2 Problems related to living alone; I10 Essential (primary) hypertension; I34.1 Nonrheumatic mitral (valve) prolapse; I37.1 Nonrheumatic pulmonary valve insufficiency; I36.1 Nonrheumatic tricuspid (valve) insufficiency; I25.10 Atherosclerotic heart disease of native coronary artery without angina pectoris; I70.293 Other atherosclerosis of native arteries of extremities, bilateral legs; I70.0 Atherosclerosis of aorta; Z85.850 Personal history of malignant neoplasm of thyroid; G47.33 Obstructive sleep apnea (adult) (pediatric); J04.10 Acute tracheitis without obstruction; Q40.1 Congenital hiatus hernia; K64.8 Other hemorrhoids; K57.30 Diverticulosis of large intestine without perforation or abscess without bleeding

== ENCOUNTER 2023-11-15 06:36 | Outpatient (CLI) | payer OTHER ==
[2023-11-15 07:35] LABS: HEMATOCRIT 35.9 % (36.0-45.00); HEMOGLOBIN 12.3 g/dL (12.0-15.00); MEAN CELL VOLUME 91.7 fL (80.00-100.00); MEAN CORPUSCULAR HEMOGLOBIN 31.5 pg (27.00-32.0); MEAN CORPUSCULAR HGB CONC 34.4 g/dl (32.0-36.0); PLATELET COUNT 251 K/uL (150-450); RED BLOOD COUNT 3.91 M/uL (4.00-6.00); RED CELL DISTRIBUTION WIDTH 14.1 % (11.5-14.5)
[2023-11-15 09:06] LABS: ALBUMIN 3.8 gm/dL (3.4-5.0); BILIRUBIN TOTAL 0.45 mg/dL (0.3-1.2); CALCIUM 9.2 mg/dL (8.5-10.1); CREATININE SERUM 0.74 mg/dL (0.55-1.02); FERRITIN 230.8 NG/ML (8-252); GFR 76.72; GLOBULINA 3.1 G/DL (2.4-3.5); POTASSIUM 4.25 mEq/L (3.5-5.1); T4 FREE 1.13 NG/ML (0.76-1.46); TOTAL PROTEIN 6.9 gm/dL (6.4-8.2)
[2023-11-15 09:13] LABS: TSH 6.05 uIU/mL (0.358-3.74)
[2023-11-15 11:20] LABS: FOLIC ACID > 20.00 ng/ml (4.78-20)
[2023-11-15 11:41] LABS: MANUAL PLATELET COUNT 318; PLATELET ESTIMATE NORMAL (NORMAL)
[2023-11-16 09:11] LABS: CA 125 11.9 U/mL (0.0-38.1)
== END 2023-11-15 06:42 | disposition home or self-care (01) ==
LOC: LAB 06:36
PROVIDERS: ATTEND Internal Medicine Hematology & Oncology
DX: D51.3 Other dietary vitamin B12 deficiency anemia (principal); D50.8 Other iron deficiency anemias; I10 Essential (primary) hypertension; E03.9 Hypothyroidism, unspecified; E55.9 Vitamin D deficiency, unspecified; R97.0 Elevated carcinoembryonic antigen [CEA]; Z80.0 Family history of malignant neoplasm of digestive organs; Z80.3 Family history of malignant neoplasm of breast; C73 Malignant neoplasm of thyroid gland; R79.9 Abnormal finding of blood chemistry, unspecified; R74.02 Elevation of levels of lactic acid dehydrogenase [LDH]; K76.89 Other specified diseases of liver; E03.8 Other specified hypothyroidism; C25.9 Malignant neoplasm of pancreas, unspecified; C56.9 Malignant neoplasm of unspecified ovary

== ENCOUNTER 2024-01-04 07:28 | Outpatient (CLI) | payer OTHER ==
[2024-01-04 08:38] LABS: URINE APPEARANCE Clear; URINE BILIRRUBIN Negative (NEGATIVE); URINE BLOOD NHT; URINE COLOR Yellow; URINE GLUCOSE Negative (NEGATIVE); URINE KETONE Negative (NEGATIVE); URINE LEUKOCYTE Negative; URINE NITRATE Negative; URINE PROTEIN Negative (NEGATIVE); URINE UROBILINOGEN 0.2 E.U./dl
[2024-01-04 08:43] LABS: URINE EPITHELIAL CELLS 2.7 uL (0.0-38.8); URINE RBC 12.6 uL (0.0-20.8); URINE WBC 2.7 uL (0.0-23.2)
[2024-01-04 08:54] LABS: HEMATOCRIT 36.4 % (36.0-45.00); HEMOGLOBIN 12.2 g/dL (12.0-15.00); MEAN CELL VOLUME 94.2 fL (80.00-100.00); MEAN CORPUSCULAR HEMOGLOBIN 31.7 pg (27.00-32.0); MEAN CORPUSCULAR HGB CONC 33.6 g/dl (32.0-36.0); PLATELET COUNT 274 K/uL (150-450); RED BLOOD COUNT 3.87 M/uL (4.00-6.00)
[2024-01-04 09:00] LABS: URINE BACTERIA 3.7 uL (0.0-1933)
[2024-01-04 09:45] LABS: ALBUMIN 3.8 gm/dL (3.4-5.0); BILIRUBIN TOTAL 0.49 mg/dL (0.3-1.2); CALCIUM 8.8 mg/dL (8.5-10.1); CHOL HDL RATIO 1.9 (0-5.0); CREATININE SERUM 0.67 mg/dL (0.55-1.02); GFR 86.04; GLOBULINA 3.1 G/DL (2.4-3.5); POTASSIUM 4.27 mEq/L (3.5-5.1); T4 FREE 1.16 NG/ML (0.76-1.46); TOTAL PROTEIN 6.9 gm/dL (6.4-8.2); TSH 3.69 uIU/mL (0.358-3.74)
[2024-01-04 10:30] LABS: VITAMIN D3 25 HYDROXY 56.31 ng/ml (30-120)
== END 2024-01-04 07:29 | disposition home or self-care (01) ==
LOC: LAB 07:28
PROVIDERS: ATTEND Internal Medicine Endocrinology, Diabetes & Metabolism
DX: I10 Essential (primary) hypertension (principal); D53.9 Nutritional anemia, unspecified; N36.9 Urethral disorder, unspecified; E78.2 Mixed hyperlipidemia; N36.2 Urethral caruncle; E55.9 Vitamin D deficiency, unspecified; E11.9 Type 2 diabetes mellitus without complications

== ENCOUNTER → 2024-03-25 07:28 | Outpatient (CLI) | payer OTHER ==
[2024-03-25 08:18] LABS: HEMATOCRIT 37.1 % (36.0-45.00); HEMOGLOBIN 12.5 g/dL (12.0-15.00); MEAN CORPUSCULAR HEMOGLOBIN 31.6 pg (27.00-32.0); MEAN CORPUSCULAR HGB CONC 33.7 g/dl (32.0-36.0); PLATELET COUNT 259 K/uL (150-450); RED BLOOD COUNT 3.95 M/uL (4.00-6.00); RED CELL DISTRIBUTION WIDTH 13.6 % (11.5-14.5)
[2024-03-25 08:50] LABS: URINE APPEARANCE Clear; URINE BILIRRUBIN Negative (NEGATIVE); URINE BLOOD Negative; URINE COLOR Yellow; URINE GLUCOSE Negative (NEGATIVE); URINE KETONE Negative (NEGATIVE); URINE LEUKOCYTE Negative; URINE NITRATE Negative; URINE PROTEIN Negative (NEGATIVE); URINE UROBILINOGEN 0.2 E.U./dl
[2024-03-25 08:54] LABS: URINE BACTERIA 7.3 uL (0.0-1933); URINE EPITHELIAL CELLS 1.8 uL (0.0-38.8); URINE RBC 12.5 uL (0.0-20.8)
[2024-03-25 09:20] LABS: ALBUMIN 3.7 gm/dL (3.4-5.0); BILIRUBIN TOTAL 0.48 mg/dL (0.3-1.2); CREATININE SERUM 0.67 mg/dL (0.55-1.02); GFR 85.8; GLOBULINA 3.1 G/DL (2.4-3.5); POTASSIUM 4.22 mEq/L (3.5-5.1); TOTAL PROTEIN 6.8 gm/dL (6.4-8.2)
== END | disposition home or self-care (01) ==
LOC: LAB 07:28
PROVIDERS: ATTEND Internal Medicine
DX: I10 Essential (primary) hypertension (principal); I34.1 Nonrheumatic mitral (valve) prolapse; I37.1 Nonrheumatic pulmonary valve insufficiency; I36.1 Nonrheumatic tricuspid (valve) insufficiency; I35.1 Nonrheumatic aortic (valve) insufficiency; I25.10 Atherosclerotic heart disease of native coronary artery without angina pectoris; I70.293 Other atherosclerosis of native arteries of extremities, bilateral legs; I70.0 Atherosclerosis of aorta; E78.2 Mixed hyperlipidemia; Z85.850 Personal history of malignant neoplasm of thyroid; E89.0 Postprocedural hypothyroidism; G47.33 Obstructive sleep apnea (adult) (pediatric); J04.10 Acute tracheitis without obstruction; K64.8 Other hemorrhoids; K57.30 Diverticulosis of large intestine without perforation or abscess without bleeding; K86.3 Pseudocyst of pancreas; Q44.6 Cystic disease of liver; K76.89 Other specified diseases of liver; K21.9 Gastro-esophageal reflux disease without esophagitis; N87.9 Dysplasia of cervix uteri, unspecified; N39.0 Urinary tract infection, site not specified; R80.8 Other proteinuria; N94.89 Other specified conditions associated with female genital organs and menstrual cycle; D25.9 Leiomyoma of uterus, unspecified; S43.80XA Sprain of other specified parts of unspecified shoulder girdle, initial encounter; M85.89 Other specified disorders of bone density and structure, multiple sites; M99.03 Segmental and somatic dysfunction of lumbar region; M62.830 Muscle spasm of back; M51.27 Other intervertebral disc displacement, lumbosacral region; M54.16 Radiculopathy, lumbar region; M21.951 Unspecified acquired deformity of right thigh; M21.952 Unspecified acquired deformity of left thigh; M48.061 Spinal stenosis, lumbar region without neurogenic claudication; G60.3 Idiopathic progressive neuropathy; N60.29 Fibroadenosis of unspecified breast; D49.3 Neoplasm of unspecified behavior of breast; L20.89 Other atopic dermatitis; Z68.21 Body mass index [BMI] 21.0-21.9, adult; R73.01 Impaired fasting glucose; E55.9 Vitamin D deficiency, unspecified; D50.8 Other iron deficiency anemias; D52.9 Folate deficiency anemia, unspecified; Z12.11 Encounter for screening for malignant neoplasm of colon

== ENCOUNTER → 2024-05-22 07:19 | Outpatient (CLI) | payer OTHER ==
[2024-05-22 08:28] LABS: PH,URINE 7.5 (5.0-8.0); URINE APPEARANCE Clear; URINE BILIRRUBIN Negative (NEGATIVE); URINE BLOOD Negative; URINE COLOR Yellow; URINE GLUCOSE Negative (NEGATIVE); URINE KETONE Negative (NEGATIVE); URINE LEUKOCYTE Negative; URINE NITRATE Negative; URINE PROTEIN Negative (NEGATIVE); URINE UROBILINOGEN 0.2 E.U./dl
[2024-05-22 08:32] LABS: URINE BACTERIA 9.7 uL (0.0-1933); URINE EPITHELIAL CELLS 1.5 uL (0.0-38.8); URINE RBC 14.7 uL (0.0-20.8); URINE WBC 3.1 uL (0.0-23.2)
[2024-05-22 08:52] LABS: ALBUMIN 3.9 gm/dL (3.4-5.0); BILIRUBIN TOTAL 0.56 mg/dL (0.3-1.2); CALCIUM 8.7 mg/dL (8.5-10.1); CREATININE SERUM 0.68 mg/dL (0.55-1.02); GFR 84.35; GLOBULINA 3.3 G/DL (2.4-3.5); POTASSIUM 4.11 mEq/L (3.5-5.1); TOTAL PROTEIN 7.2 gm/dL (6.4-8.2)
[2024-05-22 08:53] LABS: HEMATOCRIT 37.5 % (36.0-45.00); MEAN CELL VOLUME 92.2 fL (80.00-100.00); MEAN CORPUSCULAR HGB CONC 34.7 g/dl (32.0-36.0); PLATELET COUNT 289 K/uL (150-450); RED BLOOD COUNT 4.07 M/uL (4.00-6.00); RED CELL DISTRIBUTION WIDTH 14.1 % (11.5-14.5)
[2024-05-22 09:04] LABS: ERYTHROCYTE SEDIMENTATION RATE 18 mm/hr
[2024-05-22 09:43] LABS: MANUAL PLATELET COUNT 394
[2024-05-22 09:45] LABS: PLATELET ESTIMATE NORMAL (NORMAL)
[2024-05-22 11:09] LABS: FOLIC ACID > 20.00 ng/ml (4.78-20)
[2024-05-22 17:34] LABS: % SATURACION 42.7 % (15-50); FERRITIN 233.9 NG/ML (8-252); T4 FREE 1.38 NG/ML (0.76-1.46); TSH 0.53 uIU/mL (0.358-3.74)
[2024-05-23 10:08] LABS: CA 125 13.1 U/mL (0.0-38.1)
== END | disposition home or self-care (01) ==
LOC: LAB 07:19
PROVIDERS: ATTEND Internal Medicine Hematology & Oncology
DX: Z80.3 Family history of malignant neoplasm of breast (principal); Z00.00 Encounter for general adult medical examination without abnormal findings; C73 Malignant neoplasm of thyroid gland; D51.3 Other dietary vitamin B12 deficiency anemia; D50.8 Other iron deficiency anemias; I10 Essential (primary) hypertension; E03.9 Hypothyroidism, unspecified; E78.5 Hyperlipidemia, unspecified; E55.9 Vitamin D deficiency, unspecified; R97.0 Elevated carcinoembryonic antigen [CEA]; R79.9 Abnormal finding of blood chemistry, unspecified; R74.02 Elevation of levels of lactic acid dehydrogenase [LDH]; K76.89 Other specified diseases of liver; E03.8 Other specified hypothyroidism; C25.9 Malignant neoplasm of pancreas, unspecified; D53.9 Nutritional anemia, unspecified; E78.2 Mixed hyperlipidemia; E04.9 Nontoxic goiter, unspecified; E11.9 Type 2 diabetes mellitus without complications; D3A.019 Benign carcinoid tumor of the small intestine, unspecified portion; K76.0 Fatty (change of) liver, not elsewhere classified; N39.0 Urinary tract infection, site not specified

== ENCOUNTER 2024-07-14 06:39 | Outpatient (CLI) | payer OTHER ==
[2024-07-14 07:40] LABS: URINE APPEARANCE Clear; URINE BILIRRUBIN Negative (NEGATIVE); URINE BLOOD Negative; URINE COLOR Yellow; URINE GLUCOSE Negative (NEGATIVE); URINE KETONE Negative (NEGATIVE); URINE LEUKOCYTE Negative; URINE NITRATE Negative; URINE PROTEIN Negative (NEGATIVE); URINE UROBILINOGEN 0.2 E.U./dl
[2024-07-14 07:42] LABS: URINE RBC 11.9 uL (0.0-20.8); URINE WBC 2.8 uL (0.0-23.2)
[2024-07-14 07:45] LABS: URINE BACTERIA 2.4 uL (0.0-1933); URINE EPITHELIAL CELLS 1.1 uL (0.0-38.8)
[2024-07-14 07:50] LABS: HEMATOCRIT 37.1 % (36.0-45.00); HEMOGLOBIN 12.6 g/dL (12.0-15.00); MEAN CELL VOLUME 92.7 fL (80.00-100.00); MEAN CORPUSCULAR HEMOGLOBIN 31.3 pg (27.00-32.0); MEAN CORPUSCULAR HGB CONC 33.8 g/dl (32.0-36.0); PLATELET COUNT 284 K/uL (150-450); RED BLOOD COUNT 4.01 M/uL (4.00-6.00); RED CELL DISTRIBUTION WIDTH 13.7 % (11.5-14.5)
[2024-07-14 08:48] LABS: ALBUMIN 3.9 gm/dL (3.4-5.0); BILIRUBIN TOTAL 0.54 mg/dL (0.3-1.2); CALCIUM 9.3 mg/dL (8.5-10.1); CHOL HDL RATIO 2.1 (0-5.0); CREATININE SERUM 0.63 mg/dL (0.55-1.02); GFR 92.12; POTASSIUM 4.17 mEq/L (3.5-5.1); T4 FREE 1.46 NG/ML (0.76-1.46); TOTAL PROTEIN 6.9 gm/dL (6.4-8.2)
[2024-07-14 08:55] LABS: TSH 0.14 uIU/mL (0.358-3.74)
== END 2024-07-14 06:49 | disposition home or self-care (01) ==
LOC: LAB 06:39
PROVIDERS: ATTEND Internal Medicine
DX: I10 Essential (primary) hypertension (principal); Z60.2 Problems related to living alone; I34.1 Nonrheumatic mitral (valve) prolapse; I37.1 Nonrheumatic pulmonary valve insufficiency; I25.10 Atherosclerotic heart disease of native coronary artery without angina pectoris; I70.293 Other atherosclerosis of native arteries of extremities, bilateral legs; I70.0 Atherosclerosis of aorta; E78.2 Mixed hyperlipidemia; Z85.850 Personal history of malignant neoplasm of thyroid; G47.33 Obstructive sleep apnea (adult) (pediatric); Q40.1 Congenital hiatus hernia; K57.30 Diverticulosis of large intestine without perforation or abscess without bleeding; K64.8 Other hemorrhoids; Q44.6 Cystic disease of liver; K76.89 Other specified diseases of liver; K21.9 Gastro-esophageal reflux disease without esophagitis; N87.9 Dysplasia of cervix uteri, unspecified; N39.0 Urinary tract infection, site not specified; R80.8 Other proteinuria; M99.03 Segmental and somatic dysfunction of lumbar region; S43.80XA Sprain of other specified parts of unspecified shoulder girdle, initial encounter; M85.89 Other specified disorders of bone density and structure, multiple sites; M51.27 Other intervertebral disc displacement, lumbosacral region; M54.16 Radiculopathy, lumbar region; M25.579 Pain in unspecified ankle and joints of unspecified foot; M47.814 Spondylosis without myelopathy or radiculopathy, thoracic region; G60.3 Idiopathic progressive neuropathy; N60.29 Fibroadenosis of unspecified breast; D49.3 Neoplasm of unspecified behavior of breast; E85.4 Organ-limited amyloidosis; L20.89 Other atopic dermatitis; Z68.21 Body mass index [BMI] 21.0-21.9, adult; E03.8 Other specified hypothyroidism; R73.01 Impaired fasting glucose; E55.9 Vitamin D deficiency, unspecified; D50.8 Other iron deficiency anemias; D52.9 Folate deficiency anemia, unspecified; M06.4 Inflammatory polyarthropathy; Z12.11 Encounter for screening for malignant neoplasm of colon; R74.8 Abnormal levels of other serum enzymes

== ENCOUNTER 2024-11-25 07:00 | Outpatient (CLI) | payer OTHER ==
[2024-11-25 07:38] LABS: BASO % 0.5 % (0.1-1.2); EOS # 0.10 (0.04-0.54); EOS % 2.3 % (0.7-7.0); LYMPH # 1.11 (1.18-3.74); LYMPH % 25.9 % (19.3-53.1); MEAN PLATELET VOLUME 8.80 fl (9.4-12.4); MONO # 0.31 (0.24-0.82); MONO % 7.2 % (4.7-12.5); NEUT # 2.74 (1.56-6.13); NEUT % 63.9 % (34.0-71.1); RED CELL DISTRIBUTION WIDTH 13.2 % (11.6-14.4)
[2024-11-25 08:28] LABS: % SATURACION 45.1 % (15-50); ALT/SGPT 21.0 U/L (12-78); AST/SGOT 20.0 U/L (15-37); BILIRUBIN TOTAL 0.67 mg/dL (0.3-1.2); BUN CREA RATIO 21.0 (7.0-25.0); CREATININE SERUM 0.67 mg/dL (0.55-1.02); FE 102.0 ug/dl (50-170); GFR 85.8; GLOBULINA 3.4 G/DL (2.4-3.5); GLUCOSE FASTING 94.0 mg/dL (65-100); LDH 197.0 U/L (84-246); OSMOLALITY SERUM 289.0 MOSM/KG (275-295); T4 FREE 1.32 NG/ML (0.76-1.46)
[2024-11-25 09:05] LABS: TSH 0.53 uIU/mL (0.358-3.74)
[2024-11-25 13:25] LABS: FOLIC ACID > 20.00 ng/ml (4.78-20)
[2024-11-28 17:08] LABS: CALCITONIN < 2.0 pg/mL (0.0-5.0)
== END 2024-11-25 07:12 | disposition home or self-care (01) ==
LOC: LAB 07:00
PROVIDERS: ATTEND Internal Medicine Hematology & Oncology
DX: D50.8 Other iron deficiency anemias (principal); C73 Malignant neoplasm of thyroid gland; Z80.3 Family history of malignant neoplasm of breast; Z80.0 Family history of malignant neoplasm of digestive organs; D51.3 Other dietary vitamin B12 deficiency anemia; I10 Essential (primary) hypertension; E03.9 Hypothyroidism, unspecified; E78.5 Hyperlipidemia, unspecified; E55.9 Vitamin D deficiency, unspecified; R97.0 Elevated carcinoembryonic antigen [CEA]; R79.9 Abnormal finding of blood chemistry, unspecified; K76.89 Other specified diseases of liver; R74.02 Elevation of levels of lactic acid dehydrogenase [LDH]; E03.8 Other specified hypothyroidism

== ENCOUNTER 2024-12-02 08:48 | Outpatient (CLI) | payer OTHER ==
[2024-12-02 09:50] LABS: ob NEGATIVE (NEGATIVE)
== END 2024-12-02 08:59 | disposition home or self-care (01) ==
LOC: LAB 08:48
PROVIDERS: ATTEND Internal Medicine Gastroenterology
DX: R74.9 Abnormal serum enzyme level, unspecified (principal); Z12.11 Encounter for screening for malignant neoplasm of colon

== ENCOUNTER 2024-12-05 08:45 | Outpatient (CLI) | payer OTHER | END 2024-12-05 08:58 | disposition home or self-care (01) | LOC: TOM 08:45 | PROVIDERS: ATTEND Internal Medicine Hematology & Oncology | DX: D51.3 Other dietary vitamin B12 deficiency anemia (principal); D50.8 Other iron deficiency anemias; I10 Essential (primary) hypertension; C73 Malignant neoplasm of thyroid gland; Z00.00 Encounter for general adult medical examination without abnormal findings; Z80.3 Family history of malignant neoplasm of breast; E03.9 Hypothyroidism, unspecified; E78.5 Hyperlipidemia, unspecified; E55.9 Vitamin D deficiency, unspecified; R97.0 Elevated carcinoembryonic antigen [CEA] | CPT/HCPCS: 71270; Q9965 ==

== ENCOUNTER 2024-12-15 07:02 | Outpatient (CLI) | payer OTHER ==
[2024-12-15 08:26] LABS: URINE APPEARANCE Clear; URINE BILIRRUBIN Negative (NEGATIVE); URINE BLOOD Negative; URINE COLOR Yellow; URINE GLUCOSE Negative (NEGATIVE); URINE KETONE Negative (NEGATIVE); URINE LEUKOCYTE Negative; URINE NITRATE Negative; URINE PROTEIN Negative (NEGATIVE); URINE UROBILINOGEN 0.2 E.U./dl
[2024-12-15 08:28] LABS: URINE BACTERIA 4.8 uL (0.0-1933); URINE RBC 10.8 uL (0.0-20.8)
[2024-12-15 08:46] LABS: URINE CAST 0.00 uL (0.0-1.40); URINE EPITHELIAL CELLS 0.4 uL (0.0-38.8); URINE WBC 0.7 uL (0.0-23.2)
[2024-12-15 09:12] LABS: CHOL HDL RATIO 2.0 (0-5.0); HDL 84.0 mg/dl (40-60); LDL 68.0 mg/dl (0-130); VLDL 12.0 (0-39)
== END 2024-12-15 07:07 | disposition home or self-care (01) ==
LOC: LAB 07:02
PROVIDERS: ATTEND Internal Medicine
DX: I10 Essential (primary) hypertension (principal); I34.1 Nonrheumatic mitral (valve) prolapse; I37.1 Nonrheumatic pulmonary valve insufficiency; I36.1 Nonrheumatic tricuspid (valve) insufficiency; I35.1 Nonrheumatic aortic (valve) insufficiency; I25.10 Atherosclerotic heart disease of native coronary artery without angina pectoris; I70.293 Other atherosclerosis of native arteries of extremities, bilateral legs; I70.0 Atherosclerosis of aorta; E78.2 Mixed hyperlipidemia; Z85.850 Personal history of malignant neoplasm of thyroid; G47.33 Obstructive sleep apnea (adult) (pediatric); H25.12 Age-related nuclear cataract, left eye; Q40.1 Congenital hiatus hernia; K64.8 Other hemorrhoids; K57.30 Diverticulosis of large intestine without perforation or abscess without bleeding; K86.3 Pseudocyst of pancreas; Q44.6 Cystic disease of liver; K76.89 Other specified diseases of liver; K21.9 Gastro-esophageal reflux disease without esophagitis; N39.0 Urinary tract infection, site not specified; R80.8 Other proteinuria; N94.89 Other specified conditions associated with female genital organs and menstrual cycle; D25.9 Leiomyoma of uterus, unspecified; N85.00 Endometrial hyperplasia, unspecified; Z86.16 Personal history of COVID-19; M85.89 Other specified disorders of bone density and structure, multiple sites; M99.03 Segmental and somatic dysfunction of lumbar region; M62.830 Muscle spasm of back; M54.6 Pain in thoracic spine; M21.952 Unspecified acquired deformity of left thigh; M21.951 Unspecified acquired deformity of right thigh; M48.061 Spinal stenosis, lumbar region without neurogenic claudication; M25.579 Pain in unspecified ankle and joints of unspecified foot; M47.814 Spondylosis without myelopathy or radiculopathy, thoracic region; G60.3 Idiopathic progressive neuropathy; N60.29 Fibroadenosis of unspecified breast; D49.3 Neoplasm of unspecified behavior of breast; L20.89 Other atopic dermatitis; Z68.21 Body mass index [BMI] 21.0-21.9, adult; E03.8 Other specified hypothyroidism; R73.01 Impaired fasting glucose; E55.9 Vitamin D deficiency, unspecified; E53.8 Deficiency of other specified B group vitamins; D50.8 Other iron deficiency anemias; M06.4 Inflammatory polyarthropathy; Z12.11 Encounter for screening for malignant neoplasm of colon

== ENCOUNTER → 2025-01-12 07:14 | Outpatient (CLI) | payer OTHER ==
[2025-01-12 08:01] LABS: BASO % 0.5 % (0.1-1.2); EOS # 0.09 (0.04-0.54); EOS % 1.6 % (0.7-7.0); LYMPH # 1.29 (1.18-3.74); LYMPH % 23.2 % (19.3-53.1); MEAN PLATELET VOLUME 8.70 fl (9.4-12.4); MONO # 0.38 (0.24-0.82); MONO % 6.8 % (4.7-12.5); NEUT # 3.77 (1.56-6.13); NEUT % 67.7 % (34.0-71.1); RED CELL DISTRIBUTION WIDTH 13.2 % (11.6-14.4)
[2025-01-12 08:55] LABS: ALT/SGPT 21.0 U/L (12-78); AST/SGOT 21.0 U/L (15-37); BILIRUBIN TOTAL 0.72 mg/dL (0.3-1.2); BUN CREA RATIO 28.0 (7.0-25.0); CREATININE SERUM 0.57 mg/dL (0.55-1.02); FE 82.0 ug/dl (50-170); GFR 103.4; GLOBULINA 3.0 G/DL (2.4-3.5); GLUCOSE FASTING 96.0 mg/dL (65-100); OSMOLALITY SERUM 290.0 MOSM/KG (275-295)
[2025-01-12 13:31] LABS: FOLIC ACID > 20.00 ng/ml (4.78-20)
== END | disposition home or self-care (01) ==
LOC: LAB 07:14
PROVIDERS: ATTEND Internal Medicine Hematology & Oncology
DX: D50.8 Other iron deficiency anemias (principal); I10 Essential (primary) hypertension; R74.02 Elevation of levels of lactic acid dehydrogenase [LDH]; K76.89 Other specified diseases of liver; C73 Malignant neoplasm of thyroid gland; D51.3 Other dietary vitamin B12 deficiency anemia; E03.9 Hypothyroidism, unspecified; E78.5 Hyperlipidemia, unspecified; E55.9 Vitamin D deficiency, unspecified; R97.0 Elevated carcinoembryonic antigen [CEA]; Z80.3 Family history of malignant neoplasm of breast; Z80.0 Family history of malignant neoplasm of digestive organs; C50.919 Malignant neoplasm of unspecified site of unspecified female breast; C25.9 Malignant neoplasm of pancreas, unspecified; C56.9 Malignant neoplasm of unspecified ovary

== ENCOUNTER 2025-02-16 07:42 | Outpatient (CLI) | payer OTHER ==
[2025-02-16 08:53] LABS: BASO % 0.4 % (0.1-1.2); EOS # 0.09 (0.04-0.54); EOS % 1.7 % (0.7-7.0); LYMPH # 1.14 (1.18-3.74); LYMPH % 21.3 % (19.3-53.1); MEAN PLATELET VOLUME 8.70 fl (9.4-12.4); MONO # 0.36 (0.24-0.82); MONO % 6.7 % (4.7-12.5); NEUT # 3.74 (1.56-6.13); NEUT % 69.7 % (34.0-71.1); RED CELL DISTRIBUTION WIDTH 13.5 % (11.6-14.4)
[2025-02-16 08:55] LABS: URINE APPEARANCE Clear; URINE BILIRRUBIN Negative (NEGATIVE); URINE BLOOD Negative; URINE COLOR Yellow; URINE GLUCOSE Negative (NEGATIVE); URINE KETONE Negative (NEGATIVE); URINE LEUKOCYTE Negative; URINE NITRATE Negative; URINE PROTEIN Negative (NEGATIVE); URINE UROBILINOGEN 0.2 E.U./dl
[2025-02-16 08:58] LABS: URINE BACTERIA 4.7 uL (0.0-1933); URINE RBC 11.4 uL (0.0-20.8); URINE WBC 2.4 uL (0.0-23.2)
[2025-02-16 09:02] LABS: URINE CAST 0.00 uL (0.0-1.40); URINE EPITHELIAL CELLS 1.2 uL (0.0-38.8)
[2025-02-16 10:20] LABS: ALT/SGPT 20.0 U/L (12-78); AST/SGOT 20.0 U/L (15-37); BILIRUBIN TOTAL 0.58 mg/dL (0.3-1.2); BUN CREA RATIO 24.0 (7.0-25.0); CHOL HDL RATIO 1.9 (0-5.0); CREATININE SERUM 0.72 mg/dL (0.55-1.02); GFR 78.96; GLOBULINA 3.1 G/DL (2.4-3.5); GLUCOSE FASTING 92.0 mg/dL (65-100); HDL 87.0 mg/dl (40-60); LDH 200.0 U/L (84-246); LDL 66.0 mg/dl (0-130); OSMOLALITY SERUM 292.0 MOSM/KG (275-295); PHOSPHOKINASE CREATININE 132.0 U/L (26-192); T4 FREE 1.46 NG/ML (0.76-1.46); TSH 0.763 uIU/mL (0.358-3.74); VLDL 9.0 (0-39)
[2025-02-16 10:21] LABS: GAMMA GLUTAMIL TRANSFERASE 16.0 U/L (5-55)
== END 2025-02-16 07:50 | disposition home or self-care (01) ==
LOC: LAB 07:42
DX: D53.9 Nutritional anemia, unspecified (principal); E78.2 Mixed hyperlipidemia; N39.0 Urinary tract infection, site not specified; N36.2 Urethral caruncle; E11.9 Type 2 diabetes mellitus without complications; E04.9 Nontoxic goiter, unspecified; K76.1 Chronic passive congestion of liver; E61.3 Manganese deficiency

== ENCOUNTER 2025-03-05 11:51 | Outpatient (CLI) | payer OTHER ==
[2025-03-05 13:30] LABS: CREATININE SERUM 0.55 mg/dL (0.55-1.02); GFR 107.75
== END 2025-03-05 12:00 | disposition home or self-care (01) ==
LOC: LAB 11:51
PROVIDERS: ATTEND Radiology Diagnostic Radiology
DX: K86.2 Cyst of pancreas (principal)

== ENCOUNTER 2025-03-09 07:17 | Outpatient (CLI) | payer OTHER | END 2025-03-09 07:21 | disposition home or self-care (01) | LOC: MRI 07:17 | PROVIDERS: ATTEND Internal Medicine Gastroenterology | DX: K86.2 Cyst of pancreas (principal) | CPT/HCPCS: 74183 ==